=== PATIENT | female | born 1970 | race Hispanic/Latino ===

== ENCOUNTER 2016-11-05 13:08 | Emergency (ER) | payer BC, OTHER ==
[2016-11-05 13:21] VITALS: TEMP 99.6
[2016-11-05] MEDS ORDERED: SODIUM CHLORIDE 0.9% 1000ML 1,000 ML IVS ONE (13:24)
[2016-11-05] MEDS ORDERED: PROMETHAZINE HCL INJ 25 MG in SODIUM CHLORIDE 0.9% 50ML 50 ML IVPB ONE (13:25)
[2016-11-05] MEDS ORDERED: LIDOCAINE VIS-MYLANTA 30 ML UD PO ONE (13:25)
[2016-11-05] MEDS ORDERED: SUCRALFATE 1 GM/10 ML 1 GM UD PO ONE (13:25)
[2016-11-05] MEDS ORDERED: FAMOTIDINE 20 MG TAB PO SCH (13:30)
[2016-11-05] MEDS ORDERED: ONDANSETRON ODT 8 MG TAB SL SCH (13:30)
--- NOTE | 2016-11-05 14:04 | RAD ---
EXAM DESCRIPTION: Abdomen Series CLINICAL HISTORY: n/v/d COMPARISON: None TECHNIQUE: AP radiographs of the abdomen supine upright. Full upright chest. FINDINGS: No pulmonary infiltrate. No free air under the diaphragms. No pleural effusion. Minimal gas in the distal small bowel and colon. Nondistended. No air-fluid levels. No abnormal radiodense objects overlying the urinary tracts. Possible degenerative changes in the SI joints. IMPRESSION: No bowel distention. No free air. Probable bowel stasis. Electronically signed by: Joe Keith MD 11/05/2016 2:04 PM CDT
--- NOTE | 2016-11-05 15:03 | ED.PDOC ---
History of Present Illness - General Chief Complaint: Abdominal Pain Stated Complaint: nausea vomiting and diarrhea Time Seen by Provider: 11/05/16 13:19 Source: patient Exam Limitations: no limitations - History of Present Illness Initial Comments: the patient is a 45-year-old female presenting to the emergency room after 3 days of nausea and vomiting and diarrhea. She is not really having abdominal pain but she is having some cramping when she throws up of course. No rash. No chest pain. No palpitations. No syncope or near syncope. The patient did just get back from a trip to [place]. No blood in the stool or in the vomitus. Severity: moderate Improving Factors: nothing Worsening Factors: nothing Associated Symptoms: fever/chills, malaise, nausea/vomiting, weakness Allergies/Adverse Reactions: Allergies NO KNOWN ALLERGY Allergy (Verified 11/05/16 13:21) Home Medications: Ambulatory Orders Ciprofloxacin [Cipro] 500 mg PO BID #6 tab 11/05/16 Ondansetron [Zofran Odt] 4 mg PO Q4H PRN #10 tab 11/05/16 Review of Systems - Review of Systems Constitutional: States: fever, malaise EENTM: States: no symptoms reported Respiratory: States: no symptoms reported Cardiology: States: no symptoms reported Gastrointestinal/Abdominal: States: see HPI Genitourinary: States: see HPI Musculoskeletal: States: no symptoms reported Skin: States: no symptoms reported Neurological: States: no symptoms reported Endocrine: States: increased thirst All other Systems: No Change from Baseline Past Medical History (General) - Patient Medical History Hx Asthma: No - Vaccination History Hx Influenza Vaccination: No Hx Pneumococcal Vaccination: No - Social History Hx Tobacco Use: No Hx Alcohol Use: No Hx Substance Use: No Hx Substance Use Treatment: No Hx Depression: No - Activities of Daily Living [facility] (if applicable):: [facility] Agency (if applicable):: None - Female History Patient is a Female of Child Bearing Age (10 -59 yrs old): No Patient : No Family Medical History - Family History Mother Family History: Unknown Physical Exam - Physical Exam General Appearance: Alert, No apparent distress Eye Exam: bilateral normal Ears, Nose, Throat: normal ENT inspection, normal pharynx Neck: non-tender, full range of motion, supple Respiratory: chest non-tender, lungs clear, normal breath sounds, no respiratory distress, no accessory muscle use Cardiovascular/Chest: normal peripheral pulses, no edema, tachycardia Peripheral Pulses: radial,right: 2+, radial,left: 2+, dorsalis pedis,right: 2+, dorsalis pedis,left: 2+ Gastrointestinal/Abdominal: non tender, soft Rectal Exam: deferred Back Exam: normal inspection Extremity: normal range of motion, non-tender, normal inspection, no pedal edema , other - capillary refill is borderline 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 She does have mild to moderate dehydration. She was given medications for her stomach and IV fluids and is feeling somewhat better. I recommend she take Tylenol 500 mg every 6 hours for the next 24 hours. She needs to increase her fluid intake. She will be written for Zofran for as needed use to help to control nausea and vomiting. She continues antidiarrheals and a very minimal dose for the next 2 days if needed to help control the diarrhea. She wants to avoid constipation. Additionally Maalox can be used to help with gastritis symptoms. Pepcid can also be taken 20 mg daily for the next 1-2 weeks to help reduce gastritis symptoms. she'll be written for ciprofloxacin 500 mg by mouth twice a day for 3 days. She needs to return to the emergency room for any worsening. Otherwise she can follow-up with her primary care doctor towards the middle of this week. - Results/Orders Results/Orders: 11/05/16 13:26 UA [URINALYSIS] Stat 11/05/16 13:30 Famotidine [Pepcid] 20 mg PO ONCE Ondansetron Odt [Zofran ODT] 4 mg SL ONCE Laboratory Results - last 24 hr 11/05/16 13:35 WBC 7.9 RBC 5.97 H Hgb 16.4 H Hct 49.7 H MCV 83.3 MCH 27.4 MCHC 33.1 RDW 13.8 Plt Count 181 MPV 8.5 Absolute Neuts (auto) 6.40 Absolute Lymphs (auto) 1.00 Absolute Monos (auto) 0.30 Absolute Eos (auto) 0.00 Absolute Basos (auto) 0.20 H Neutrophils % 80.5 H Lymphocytes % 12.9 L Monocytes % 3.5 Eosinophils % 0.1 L Basophils % 3.0 H Sodium 136 Potassium 3.9 Chloride 103 Carbon Dioxide 25 Anion Gap 11.9 L BUN 17 Creatinine 1.00 BUN/Creatinine Ratio 17.0 Random Glucose 110 H Serum Osmolality 274.1 L Calcium 9.3 Magnesium 2.0 Total Bilirubin 0.9 AST 31 ALT 49 Alkaline Phosphatase 69 Serum Total Protein 8.3 H Albumin 4.6 Globulin 3.7 H Albumin/Globulin Ratio 1.2 Amylase 87 Lipase 39 Urine HCG, Qual Negative acute abdominal series appears benign Departure - Departure Clinical Impression: Gastroenteritis, Diarrhea, Dehydration, moderate Disposition: Discharge to Home or Self Care Condition: Fair Departure Forms: ED Discharge - Pt. Copy, Patient Portal Self Enrollment Instructions: DI for Abdominal Pain-Adult Diet: bland diet Activity: increase activity as tolerated Referrals: [Primary Care Provider] - 1-2 Days Prescriptions: Ciprofloxacin [Cipro] 500 mg PO BID #6 tab Ondansetron [Zofran Odt] 4 mg PO Q4H PRN #10 tab PRN Reason: Vomiting Home Medications: Ambulatory Orders Ciprofloxacin [Cipro] 500 mg PO BID #6 tab 11/05/16 Ondansetron [Zofran Odt] 4 mg PO Q4H PRN #10 tab 11/05/16 Additional Instructions: the patient is a 45-year-old female is presenting with symptoms of gastroenteritis and colitis likely associated with recent travel. She does have mild to moderate dehydration. She was given medications for her stomach and IV fluids and is feeling somewhat better. I recommend she take Tylenol 500 mg every 6 hours for the next 24 hours. She needs to increase her fluid intake. She will be written for Zofran for as needed use to help to control nausea and vomiting. She continues antidiarrheals and a very minimal dose for the next 2 days if needed to help control the diarrhea. She wants to avoid constipation. Additionally Maalox can be used to help with gastritis symptoms. Pepcid can also be taken 20 mg daily for the next 1-2 weeks to help reduce gastritis symptoms. she'll be written for ciprofloxacin 500 mg by mouth twice a day for 3 days. She needs to return to the emergency room for any worsening. Otherwise she can follow-up with her primary care doctor towards the middle of this week.
[2016-11-05 15:31] VITALS: BP 102/67; O2SAT 95
== END 2016-11-05 15:26 | disposition home or self-care (01) ==
LOC: ER 13:08
DX: K52.9 Noninfective gastroenteritis and colitis, unspecified (principal); E86.0 Dehydration
CPT/HCPCS: 36415; 74020; 80053; 81001; 81025; 82150; 83690; 83735; 85025; J7030

== ENCOUNTER → 2017-06-26 | Outpatient (CLI) | payer OTHER ==
--- NOTE | 2017-06-28 10:39 | MAM ---
EXAM DESCRIPTION: 3D Screening BILATERAL : Digital Mammography. CLINICAL HISTORY: 46 years Female SCREENING . No complaints. Mother with breast cancer. Remote family history of ovarian cancer. Postmenopausal. No HRT. COMPARISON: 2-D digital screening bilateral studies 06/09/2016 and 03/05/2015.. Report from prior examination also reviewed. TECHNIQUE: Bilateral CC and MLO projection full-field images, 3-D tomosynthesis digital mammographic technique. Also bilateral synthesized CC/ MLO full-field images. CAD not utilized. FINDINGS: The breast parenchymal density pattern is: Scattered areas of fibroglandular density. No skin thickening or nipple retraction bilateral solitary microcalcifications. No focal, stellate mass or density, focal asymmetry , and no suspicious microcalcifications bilaterally. Stable mammograms compared to prior studies, taking into account differences in mammographic technique IMPRESSION: BI-RADS CATEGORY: 2 - BENIGN FINDINGS. FOLLOW UP: Routine digital bilateral screening, one year interval from June 2017. Written communication explaining the IMPRESSION and follow-up, will be mailed to the patient and referring health care provider. According to the [employer], yearly mammograms are recommended starting at age 40 and continuing as long as a woman is in good health. Any breast change noted on a breast self-exam should be reported promptly to the patient's healthcare provider. Breast MRI is recommended for women with an approximately 20-25% or greater lifetime risk of breast cancer, including women with a strong family history of breast or ovarian cancer and women who have been treated for Hodgkin's disease. A negative mammographic report should not delay tissue diagnosis in patients with significant clinical history or physical findings. Extremely dense breast tissue limits the sensitivity of digital mammography. Electronically signed by: Joe Keith MD 06/28/2017 10:37 AM [facility]
== END ==
LOC: MAMMO 10:30
PROVIDERS: ATTEND Family Medicine
DX: Z12.31 Encounter for screening mammogram for malignant neoplasm of breast (principal)
CPT/HCPCS: 77063; G0202

== ENCOUNTER → 2018-06-14 | Outpatient (CLI) | payer OTHER ==
--- NOTE | 2018-06-17 14:13 | MAM ---
EXAM DESCRIPTION: 3D Diagnostic, Bilateral: Digital Mammography CLINICAL HISTORY: 47 yearsFemaleLEFT BREAST PAIN . No personal history of breast cancer. Mother with breast cancer. Remote family history of ovarian cancer. Childbirth. Postmenopausal 12 years. No HRT. Lifetime risk of developing breast cancer (Tyrer-Cuzick model) percentage is 6.2. COMPARISON: Bilateral screening digital breast tomosynthesis 06/26/2017... TECHNIQUE: Bilateral CC LM MLO projection full-field images, digital mammographic tomosynthesis technique. Bilateral full-field 2-D images in the MLO projection. CAD not available for tomosynthesis or 2-D images. FINDINGS: The breast parenchymal density pattern is: Scattered areas of fibroglandular density. No skin thickening or nipple retraction again noted is bilateral accessory breast tissue in the axillary regions. Right axillary lymph node. Solitary bilateral microcalcifications. No new focal, stellate mass or density, focal asymmetry , and no suspicious microcalcifications bilaterally. Stable mammograms compared to prior study, taking into account differences in mammographic technique IMPRESSION: Benign exam. BIRAD CATEGORY: 2 BENIGN FINDINGS. RECOMMENDATIONS: FOLLOW UP: Routine digital bilateral mammographic screening, one year interval from June 2018. Written communication explaining the IMPRESSION and follow-up, will be mailed to the patient and referring health care provider. According to the [employer], yearly mammograms are recommended starting at age 40 and continuing as long as a woman is in good health. Any breast change noted on a breast self-exam should be reported promptly to the patient's healthcare provider. Breast MRI is recommended for women with an approximately 20-25% or greater lifetime risk of breast cancer, including women with a strong family history of breast or ovarian cancer and women who have been treated for Hodgkin's disease. A negative mammographic report should not delay tissue diagnosis in patients with significant clinical history or physical findings. Extremely dense breast tissue limits the sensitivity of digital mammography. Electronically signed by: Joe Keith MD 06/17/2018 2:12 PM [facility] OPERATOR
== END ==
LOC: US 13:00
PROVIDERS: ATTEND Family Medicine
DX: N64.4 Mastodynia (principal)
CPT/HCPCS: 77066; G0279

== ENCOUNTER → 2019-07-21 | Outpatient (CLI) | payer OTHER ==
--- NOTE | 2019-07-21 10:32 | MAM ---
EXAM DESCRIPTION: 3D Diagnostic, Bilateral: Digital Mammography CLINICAL HISTORY: 48 yearsFemaleLUMPS BOTH BREAST PAIN IN LT BREAST . No complaints. Mother with breast cancer unknown age. Menarche age 13. Childbirth age 16. Menopause age 35. No HRT. Lifetime risk of developing breast cancer (Tyrer-Cuzick model) percentage is 8.4. COMPARISON: Bilateral screening digital breast tomosynthesis 14 June 2018. TECHNIQUE: Bilateral LM, CC, and MLO projection full-field images, digital tomosynthesis technique. Bilateral 2-D digital full-field images. LM, CC, and MLO projections. CAD not available. . Transcutaneous scanning of the left breast utilizing jensen-scale and Doppler modes. Scanning performed by the public health aides teacher ; observation by Dr. Keith. FINDINGS: The breast parenchymal density pattern is: Scattered areas of fibroglandular density. No skin thickening or nipple retraction skin marker and site of pain in the anterior third of the left breast lower inner quadrant. No mammographic abnormality was visualized. No new focal, stellate mass or density, focal asymmetry , and no suspicious microcalcifications bilaterally. Stable mammograms compared to the prior study. Ultrasound: Scanning of the anterior third of the lower inner quadrant of the left breast around the skin marker. No dominant solid mass or distinct cyst. No parenchymal edema or large calcifications. No overlying skin changes. IMPRESSION: Benign exam. BIRAD CATEGORY: 2 BENIGN FINDINGS. RECOMMENDATIONS: FOLLOW UP: Return to routine digital bilateral mammographic screening, one year interval from July 2019. Written communication explaining the IMPRESSION and follow-up, will be mailed to the patient and referring health care provider. The FINDINGS and the FOLLOW-UP plan were reviewed in person with the patient after the examination. According to the [employer], yearly mammograms are recommended starting at age 40 and continuing as long as a woman is in good health. Any breast change noted on a breast self-exam should be reported promptly to the patient's healthcare provider. Breast MRI is recommended for women with an approximately 20-25% or greater lifetime risk of breast cancer, including women with a strong family history of breast or ovarian cancer and women who have been treated for Hodgkin's disease. A negative mammographic report should not delay tissue diagnosis in patients with significant clinical history or physical findings. Extremely dense breast tissue limits the sensitivity of digital mammography. Electronically signed by: Joe Keith MD 07/21/2019 10:30 AM [employer] MA[employer]
--- NOTE | 2019-07-21 12:42 | US ---
EXAM DESCRIPTION: Breast,Left: Ultrasound. CLINICAL HISTORY: 48 yearsFemaleLUMPS BOTH BREAST PAIN IN LT BREAST COMPARISON: Bilateral diagnostic digital breast tomosynthesis on this visit. Bilateral diagnostic digital breast tomosynthesis 06/14/2018. TECHNIQUE: Transcutaneous scanning of the left breast utilizing jensen-scale and Doppler modes. Scanning performed by the lather apprentice and Dr. Keith. FINDINGS: Ultrasound: Scanning of the anterior third of the lower inner quadrant of the left breast around the skin marker. No dominant solid mass or distinct cyst. No parenchymal edema or large calcifications. No overlying skin changes. IMPRESSION: 1. Bi-Rads Category 2: Benign. 2. Please refer to images and report from bilateral diagnostic breast tomosynthesis today. The FINDINGS and the FOLLOW-UP plan were reviewed in person with the patient after the examination. Written communication explaining the IMPRESSION and FOLLOW-UP will be mailed to the patient and referring care provider. Electronically signed by: Joe Keith MD 07/21/2019 12:40 PM [facility]
== END ==
LOC: MAMMO 09:00
PROVIDERS: ATTEND Family Medicine
DX: N63.10 Unspecified lump in the right breast, unspecified quadrant (principal); N63.20 Unspecified lump in the left breast, unspecified quadrant; N64.4 Mastodynia
CPT/HCPCS: 76641; 77066; G0279